=== PATIENT | male | born 1985 | race Caucasian/White ===

== ENCOUNTER 2017-06-01 04:16 | Emergency (ER) | payer OTHER ==
[~2017-06-01] VITALS: Ht 185.4 cm; Wt 77.1 kg
[2017-06-01] MEDS ORDERED: ALBUTEROL2.5 MG/31 (04:23)
[2017-06-01] MEDS ORDERED: KEFLEX500 M1 PO (05:44)
[2017-06-01 06:05] VITALS: BP 131/83
== END 2017-06-01 06:05 ==
LOC: M.ERS 04:16
DX: S61.011A Laceration without foreign body of right thumb without damage to nail, initial encounter (principal); J45.909 Unspecified asthma, uncomplicated; Z88.1 Allergy status to other antibiotic agents; W26.0XXA Contact with knife, initial encounter; Y93.89 Activity, other specified; Y92.89 Other specified places as the place of occurrence of the external cause; Y99.8 Other external cause status